=== PATIENT | female | born 1945 | race Two or more races ===

== ENCOUNTER 2024-07-30 17:12 | Inpatient (IN) | payer MEDICARE, OTHER ==
[~2024-07-30] VITALS: Ht 162.6 cm; Wt 61.2 kg
[2024-07-30 15:00] VITALS: BP 142/53; TEMP 98.2; O2SAT 99
[2024-07-30] MEDS ORDERED: ALBUTEROL SULFATE 8 GM HFA.AER.AD IH PRN (17:30)
[2024-07-30] MEDS ORDERED: MELOXICAM 7.5 MG TABLET PO PRN (17:45)
[2024-07-30] MEDS ORDERED: REMEDY ESSENTIAL ZINC PASTE 113 GM TOP PRN (18:00)
[2024-07-30] MEDS ORDERED: OXYCODONE/APAP 5-325 MG TABLET PO PRN (18:00)
[2024-07-30] MEDS ORDERED: ACET325C7 PO (18:21)
[2024-07-30] MEDS ORDERED: PANT40TA49 PO (18:22)
[2024-07-30] MEDS ORDERED: IBUP-1955 PO (18:22)
[2024-07-30] MEDS ORDERED: ALBU8HFA4 INH (18:24)
[2024-07-30] MEDS ORDERED: ENOX40DI SQ (18:25)
[2024-07-30] MEDS ORDERED: GABA100C PO (18:26)
[2024-07-30] MEDS ORDERED: LEVO50TA8 PO (18:26)
[2024-07-30] MEDS ORDERED: LIDO30AD10 TD (18:27)
[2024-07-30] MEDS ORDERED: MELO-107 PO (18:27)
[2024-07-30] MEDS ORDERED: NAMENDA (18:28)
[2024-07-30] MEDS ORDERED: CYCL30DR EACHEYE (18:29)
[2024-07-30 20:00] VITALS: BP 134/55; TEMP 98; O2SAT 98
[2024-07-31 06:00] VITALS: BP 166/67; TEMP 98.3; O2SAT 94
[2024-07-31] MEDS ORDERED: LEVOTHYROXINE SODIUM 50 MCG TABLET PO SCH (07:00)
[2024-07-31] MEDS: OXYCODONE HCL 5 MG TABLET PO SCH ×2 (08:00→13:00)
[2024-07-31] MEDS ORDERED: MEMANTINE HCL 10 MG TABLET PO SCH (09:00)
[2024-07-31] MEDS: OXYCODONE/APAP 5-325 MG TABLET PO PRN (14:51)
[2024-07-31 16:19] VITALS: BP 139/58; TEMP 98.9; O2SAT 99
[2024-07-31 20:00] VITALS: BP 142/58; TEMP 97.8; O2SAT 98
[2024-07-31] MEDS: LIDOCAINE 5% PATCH TD SCH (21:13)
[2024-07-31] MEDS: CEphaleXIN 500 MG CAPSULE PO SCH (23:43)
[2024-08-01] MEDS: IBUPROFEN 400 MG TABLET PO PRN (05:33)
[2024-08-01] MEDS ORDERED: ONDANSETRON HCL 4 MG TABLET ONE (06:09)
[2024-08-01] MEDS: LEVOTHYROXINE SODIUM 50 MCG TABLET PO SCH (06:32)
[2024-08-01] MEDS: PANTOPRAZOLE SODIUM 40 MG TABLET.DR PO SCH (06:32)
[2024-08-01] MEDS: ONDANSETRON ODT 4 MG TAB.RAPDIS SL PRN (06:32)
[2024-08-01 06:59] VITALS: BP 139/50; TEMP 98.5; O2SAT 97
[2024-08-01] MEDS: GABAPENTIN 100 MG CAPSULE PO SCH (08:28)
[2024-08-01] MEDS: ENOXAPARIN SODIUM 40 MG/0.4 ML DISP.SYRIN SQ SCH (08:31)
[2024-08-01] MEDS: ENSURE ENLIVE (VAN) 240 ML LIQUID PO SCH (08:38)
[2024-08-01] MEDS ORDERED: ONDANSETRON 4 MG/2 ML VIAL ONE (12:19)
[2024-08-01 15:50] VITALS: BP 159/70; TEMP 97.9; O2SAT 100
[2024-08-01 20:34] VITALS: BP 145/57; TEMP 97.8; O2SAT 99
[2024-08-01] MEDS: LIDOCAINE 5% PATCH TD SCH (22:05)
[2024-08-02 06:54] VITALS: BP 120/68; TEMP 98.3; O2SAT 96
[2024-08-02] MEDS: HYDROCODONE/APAP 5-325MG TABLET PO SCH ×2 (08:00→13:44)
[2024-08-02 16:23] VITALS: BP 127/53; TEMP 98.8; O2SAT 98
[2024-08-02 20:28] VITALS: BP 133/57; TEMP 97.9; O2SAT 97
[2024-08-02] MEDS: OXYCODONE/APAP 5-325 MG TABLET PO PRN (23:19)
[2024-08-03] MEDS: PHENAZOPYRIDINE HCL 100 MG TABLET PO PRN (05:17)
[2024-08-03 06:20] VITALS: BP 156/91; TEMP 98.5; O2SAT 83
[2024-08-03 15:05] VITALS: BP 132/72; TEMP 97.8; O2SAT 99
[2024-08-03 15:53] LABS: BASOPHILS # (AUTO) 0.1 K/UL (0.0-0.2); BASOPHILS % (AUTO) 1.2 % (0.0-2.0); EOSINOPHILS # (AUTO) 0.1 K/uL (0.0-0.7); EOSINOPHILS % (AUTO) 1.8 % (0.0-7.0); HEMOGLOBIN 8.5 g/dL (10.9-14.3); LYMPHOCYTES # (AUTO) 0.9 K/uL (0.8-4.8); LYMPHOCYTES % (AUTO) 19.1 % (20.5-51.5); MEAN CORPUSCULAR HEMOGLOBIN 30.4 uug (24.7-32.8); MEAN CORPUSCULAR HGB CONC 34 g/dL (32.3-35.6); MEAN CORPUSCULAR VOLUME 89.6 fL (75.5-95.3); MONOCYTES # (AUTO) 0.5 K/uL (0.1-1.30); NEUTROPHILS # (AUTO) 3.1 K/uL (1.8-8.9); NEUTROPHILS % (AUTO) 67.9 % (38.5-71.5); PLATELET COUNT (AUTO) 400 K/uL (179-408); RED BLOOD CELL COUNT(AUTO) 2.79 MIL/uL (3.63-4.92); RED CELL DISTRIBUTION WIDTH 12.8 % (12.3-17.7); WHITE BLOOD COUNT (AUTO) 4.6 K/uL (3.8-11.8)
[2024-08-03 15:54] LABS: DIFFERENTIAL COMMENT 1
[2024-08-03 16:05] LABS: ALANINE AMINOTRANSFERASE 20 U/L (14-59); ALBUMIN 2.9 g/dL (3.4-5.0); ALKALINE PHOSPHATASE 93 U/L (50-136); ASPARTATE AMINOTRANSFERASE 13 U/L (15-37); BILIRUBIN,DIRECT 0.4 mg/dL (0.0-0.2); CALCIUM 8.5 mg/dL (8.5-10.1); CARBON DIOXIDE 26 mmol/L (21-32); CHLORIDE 106 mmol/L (98-107); CREATININE 0.6 mg/dL (0.6-1.3); GLUCOSE 102 mg/dL (74-106); POTASSIUM 3.2 mmol/L (3.5-5.1); SODIUM SERUM 143 mmol/L (136-145); TOTAL PROTEIN, SERUM 6.3 g/dL (6.4-8.2); UREA NITROGEN, BLOOD 19 mg/dL (7-18)
[2024-08-03 20:05] VITALS: BP 102/46; TEMP 98.4; O2SAT 97
[2024-08-04 05:57] VITALS: BP 118/45; TEMP 98.1; O2SAT 97
[2024-08-04 15:15] LABS: *BILIRUBIN,URIN NEGATIVE (NEGATIVE); *BLOOD, URINE 2+ (NEGATIVE); *CLARITY,URINE CLEAR (CLEAR); *COLOR,URINE YELLOW (YELLOW); *KETONES,URINE NEGATIVE (NEGATIVE); *PROTEIN,URINE NEGATIVE (NEGATIVE); LEUKOCYTE ESTERASE ,URINE NEGATIVE (NEGATIVE); NITRITE, URINE NEGATIVE (NEGATIVE); UGLUCOSE NEGATIVE (NEGATIVE)
[2024-08-04 15:22] VITALS: BP 141/63; TEMP 98.2; O2SAT 98
[2024-08-04 15:31] LABS: BACTERIA,URINE NONE SEEN /HPF (NONE SEEN); SQUAMOUS EPITHELIAL CELL,UR FEW /HPF (NONE SEEN); WBC,URINE 0-3 /HPF (0-3)
[2024-08-04 20:00] VITALS: BP 122/49; TEMP 98.5; O2SAT 98
[2024-08-04] MEDS: MAGNESIUM HYDROXIDE 30 ML LIQUID UDC PO PRN (21:15)
[2024-08-04] MEDS: QUETIAPINE FUMARATE 25 MG TABLET PO PRN (21:34)
[2024-08-05 15:46] VITALS: BP 98/47; TEMP 98.2; O2SAT 98
[2024-08-05 21:18] VITALS: BP 111/41; TEMP 98.2; O2SAT 97
[2024-08-06 07:10] LABS: BASOPHILS # (AUTO) 0.1 K/UL (0.0-0.2); BASOPHILS % (AUTO) 1.8 % (0.0-2.0); EOSINOPHILS # (AUTO) 0.2 K/uL (0.0-0.7); EOSINOPHILS % (AUTO) 4.6 % (0.0-7.0); HEMATOCRIT 25.2 % (31.2-41.9); HEMOGLOBIN 8.8 g/dL (10.9-14.3); LYMPHOCYTES # (AUTO) 0.7 K/uL (0.8-4.8); LYMPHOCYTES % (AUTO) 17.2 % (20.5-51.5); MEAN CORPUSCULAR HEMOGLOBIN 31.7 uug (24.7-32.8); MEAN CORPUSCULAR HGB CONC 35 g/dL (32.3-35.6); MEAN CORPUSCULAR VOLUME 91.1 fL (75.5-95.3); MONOCYTES # (AUTO) 0.4 K/uL (0.1-1.30); MONOCYTES % (AUTO) 10.9 % (0.0-11.0); NEUTROPHILS # (AUTO) 2.6 K/uL (1.8-8.9); NEUTROPHILS % (AUTO) 65.5 % (38.5-71.5); PLATELET COUNT (AUTO) 467 K/uL (179-408); RED BLOOD CELL COUNT(AUTO) 2.76 MIL/uL (3.63-4.92); RED CELL DISTRIBUTION WIDTH 13.3 % (12.3-17.7); WHITE BLOOD COUNT (AUTO) 3.9 K/uL (3.8-11.8)
[2024-08-06 07:21] LABS: DIFFERENTIAL COMMENT 1
[2024-08-06 07:22] VITALS: BP 121/68; TEMP 98.6; O2SAT 98
[2024-08-06 07:38] LABS: IRON, SERUM 39 ug/dL (50-175)
[2024-08-06 07:58] LABS: ALANINE AMINOTRANSFERASE 17 U/L (14-59); ALBUMIN 2.9 g/dL (3.4-5.0); ALKALINE PHOSPHATASE 113 U/L (50-136); ASPARTATE AMINOTRANSFERASE 5 U/L (15-37); BILIRUBIN,TOTAL 1.3 mg/dL (0.2-1.0); CALCIUM 8.8 mg/dL (8.5-10.1); CARBON DIOXIDE 27 mmol/L (21-32); CHLORIDE 109 mmol/L (98-107); CHOLESTEROL 150 mg/dL (<200); CREATININE 0.7 mg/dL (0.6-1.3); GLUCOSE 119 mg/dL (74-106); HDL CHOLESTEROL 53 mg/dL (40-60); MAGNESIUM 1.9 mg/dL (1.8-2.4); PHOSPHOROUS 3.6 mg/dL (2.5-4.9); POTASSIUM 3.7 mmol/L (3.5-5.1); SODIUM SERUM 143 mmol/L (136-145); TOTAL PROTEIN, SERUM 6.2 g/dL (6.4-8.2); TRIGLYCERIDES 39 MG/DL (30-150); UREA NITROGEN, BLOOD 17 mg/dL (7-18)
[2024-08-06 10:32] LABS: THYROID STIMULATING HORMONE 2.572 mIU/mL (0.358-3.740)
[2024-08-06] MEDS ORDERED: QUETIAPINE FUMARATE 25 MG TABLET PO PRN (18:45)
[2024-08-06] MEDS ORDERED: IBUPROFEN 400 MG TABLET PO PRN (19:00)
[2024-08-06 20:15] VITALS: TEMP 98.8
[2024-08-07 05:27] VITALS: TEMP 98.7
[2024-08-07] MEDS: FERROUS GLUCONATE 324 MG TABLET PO SCH (10:03)
[2024-08-07] MEDS: TRAMADOL HCL 50 MG TABLET PO PRN (10:03)
[2024-08-07 15:19] VITALS: TEMP 97.9
[2024-08-07 20:00] VITALS: BP 108/57; TEMP 99; O2SAT 99
[2024-08-08 06:00] VITALS: BP 140/54; TEMP 98.4; O2SAT 98
[2024-08-08] MEDS ORDERED: IBUP-1953 PO (11:15)
[2024-08-08] MEDS ORDERED: FERR324T PO (11:15)
[2024-08-08] MEDS ORDERED: LIDO30AD10 TD (11:15)
[2024-08-08] MEDS ORDERED: PANT40TA49 PO (11:15)
[2024-08-08] MEDS ORDERED: QUET25TA36 PO (11:15)
== END 2024-08-08 15:00 | disposition home health service (06) | DRG 560 ==
PROVIDERS: ADMIT Physical Medicine & Rehabilitation Pain Medicine; ATTEND Physical Medicine & Rehabilitation Pain Medicine
DX: S72.142D Displaced intertrochanteric fracture of left femur, subsequent encounter for closed fracture with routine healing (principal); D62 Acute posthemorrhagic anemia; D68.59 Other primary thrombophilia; E44.0 Moderate protein-calorie malnutrition; F03.93 Unspecified dementia, unspecified severity, with mood disturbance; G93.40 Encephalopathy, unspecified; R17 Unspecified jaundice; F03.92 Unspecified dementia, unspecified severity, with psychotic disturbance; W01.0XXD Fall on same level from slipping, tripping and stumbling without subsequent striking against object, subsequent encounter; M19.90 Unspecified osteoarthritis, unspecified site; K21.9 Gastro-esophageal reflux disease without esophagitis; E03.9 Hypothyroidism, unspecified; E87.6 Hypokalemia; G89.29 Other chronic pain; F29 Unspecified psychosis not due to a substance or known physiological condition; F39 Unspecified mood [affective] disorder
CPT/HCPCS: 36415; 73502; 83550; 83735; 84100; 84443; 85025; A4663; C1758; J1650; J2405; Q0162